=== PATIENT | male | born 1985 | race Caucasian/White ===

== ENCOUNTER 2016-07-24 09:51 | Emergency (ER) | payer OTHER ==
[~2016-07-24] VITALS: Ht 162.6 cm; Wt 63.8 kg
[~2016-07-24 09:51] MED LIST: BACT800T5 PO; DOXY100C PO; MUPI2%T TOPICAL
[2016-07-24 10:03] VITALS: BP 107/75; PULSE 97; RESP 16; TEMP 98.1; O2SAT 99
[2016-07-24] MEDS ORDERED: MORPHINE SULFATE 4 MG/ML INJ IV PUSH ONE (10:30)
[2016-07-24 10:44] LABS: BASOPHIL # 0.1 TH/MM3 (0-0.2); BASOPHIL % 0.6 % (0.0-2.0); EOSINOPHIL % 0.5 % (0.0-4.0); HEMATOCRIT 45.9 % (39.0-51.0); HEMO FLAGS DIFF FINAL; LYMPH % 16.4 % (9.0-44.0); LYMPHOCYTE # 1.6 TH/MM3 (1.0-4.8); MEAN CELL VOLUME 92.9 FL (80.0-100.0); MEAN CORPUSCULAR HEMOGLOBIN 30.1 PG (27.0-34.0); MEAN CORPUSCULAR HGB CONC 32.4 % (32.0-36.0); MONO % 10.2 % (0.0-8.0); NEUT % 72.3 % (16.0-70.0); PLATELET COUNT 215 TH/MM3 (150-450); RED BLOOD COUNT 4.94 MIL/MM3 (4.50-5.90); RED CELL DISTRIBUTION WIDTH 12.4 % (11.6-17.2); WHITE BLOOD COUNT 9.7 TH/MM3 (4.0-11.0)
[2016-07-24 10:54] LABS: CHLORIDE 112 MEQ/L (98-107); POTASSIUM 3.9 MEQ/L (3.5-5.1); SODIUM (NA) 146 MEQ/L (136-145)
[2016-07-24 10:57] LABS: ANION GAP 8 MEQ/L (5-15)
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
[2016-07-24 10:58] LABS: APTT (PATIENT) 28.5 SEC (24.3-30.1); BLOOD UREA NITROGEN 15 MG/DL (7-18); INTERNATIONAL NORMALIZED RATIO 0.9 RATIO; PROTHROMBIN TIME - PATIENT 10.4 SEC (9.8-11.6)
[2016-07-24 11:00] LABS: ALT (GPT) 34 U/L (12-78)
[2016-07-24 11:01] LABS: AST (GOT) 24 U/L (15-37); GLOMERULAR FILTRATION RATE 88 ML/MIN (>89)
[2016-07-24 11:01] LABS: BLOOD, URINE NEG (NEG); GLUCOSE,URINE NEG (NEG); KETONE, URINE NEG (NEG); NITRITE,URINE NEG (NEG)
[2016-07-24 11:02] LABS: TOTAL BILIRUBIN ADULT 0.2 MG/DL (0.2-1.0)
[2016-07-24 11:03] LABS: ALKALINE PHOSPHATASE 80 U/L (45-117)
[2016-07-24 11:08] LABS: METHOD OF COLLECTION CLEAN CATCH; RBC, URINE 0-3 /hpf (0-3); SQUAMOUS EPITHELIAL CELL URINE 0-5 /hpf (0-5); URINE COLOR YELLOW (YELLW/STRAW)
[2016-07-24 11:09] LABS: COMMENT (UR) CULT NOT INDICATED; CULTURE IF INDICATED CULT NOT INDICATED
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
[2016-07-24 11:30] VITALS: BP 110/74; PULSE 80; RESP 18; O2SAT 99
[2016-07-24] MEDS ORDERED: IOHEXOL 300 MG/ML 50 ML BTL (for RAD DIAG) IV ONE (11:51)
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
[2016-07-24] MEDS ORDERED: IBUP-232 PO (13:17)
[2016-07-24] MEDS ORDERED: CYCL1TAB29 PO (13:17)
== END 2016-07-24 13:45 | disposition home or self-care (01) ==
LOC: PHED 09:51
DX: M79.1 Myalgia (principal); R51 Headache; V57.0XXA Driver of pick-up truck or van injured in collision with fixed or stationary object in nontraffic accident, initial encounter; F17.210 Nicotine dependence, cigarettes, uncomplicated
CPT/HCPCS: 70450; 71020; 72125; 74177; 80053; 81001; 85025; 85610; 85730; 86850; 86900; 86901; 96374; 99284; J2270; Q9967

== ENCOUNTER 2016-08-22 00:28 | Emergency (ER) | payer SELFPAY ==
[~2016-08-22] VITALS: Ht 162.6 cm; Wt 66.0 kg
[~2016-08-22 00:28] MED LIST changes: -BACT800T5 PO; +CYCL1TAB29 PO; -DOXY100C PO; +IBUP-232 PO; -MUPI2%T TOPICAL
[2016-08-22 00:37] VITALS: BP 148/105; PULSE 66; RESP 16; TEMP 98.3; O2SAT 99
[2016-08-22] MEDS ORDERED: AMOX500C PO (01:04)
[2016-08-22] MEDS ORDERED: IBUP-232 PO (01:04)
--- NOTE | 2016-08-22 01:05 | PD ---
HPI Chief Complaint: Oral / Dental Pain or Problem Time Seen by Provider: 00:51 Travel History International Travel<30 days: No Contact w/Intl Traveler<30days: No Traveled to known affect area: No History of Present Illness HPI The patient is a 31-year-old male who states he lost a filling a week ago in tooth #32. Tonight this tooth chipped piece off and it became painful. He denies any fever or swelling. He denies any other painful teeth. The patient states he gets hives with Ceclor but he has taken penicillin in the past without problem. PFS Past Medical History Medical History: Denies Significant Hx Asthma: Yes (as a kid) Atrial Fibrillation: No Diminished Hearing: No Immunizations Current: Yes Influenza Vaccination: Yes Past Surgical History Surgical History: No Previous Surgery Social History Alcohol Use: Yes ("RARELY") Tobacco Use: Yes (1/2 PPD) Substance Use: No (HX OF THC) Allergies-Medications (Allergen,Severity, Reaction): Coded Allergies: Ceclor (Verified Allergy, Severe, HIVES, 08/22/16) Reported Meds & Prescriptions Reported Meds & Active Scripts Active No Active Prescriptions or Reported Medications Review of Systems Except as stated in HPI: all other systems reviewed are Neg Physical Exam Narrative GENERAL: Well-nourished, well-developed patient in moderate apparent distress with his dental pain. His vital signs show blood pressure 148/105 but are otherwise normal. SKIN: Warm and dry. HEAD: Normocephalic. EYES: No scleral icterus. No injection or drainage. NECK: Supple, trachea midline. No JVD or lymphadenopathy. CARDIOVASCULAR: Regular rate and rhythm without murmurs, gallops, or rubs. RESPIRATORY: Breath sounds equal bilaterally. No accessory muscle use. GASTROINTESTINAL: Abdomen soft, non-tender, nondistended. MUSCULOSKELETAL: No cyanosis, or edema. BACK: Nontender without obvious deformity. No CVA tenderness. DENTAL: No loose teeth. No malocclusion. There is a questionably chipped tooth on tooth #32 and there is pain around this area. Also tender is the adjacent wisdom tooth area. No drainable abscesses are seen. There is slight erythema of the gums. Data Data Last Documented VS Vital Signs Date Time Temp Pulse Resp B/P Pulse Ox O2 Delivery O2 Flow Rate FiO2 08/22/16 00:37 98.3 66 16 148/105 99 MDM Medical Decision Making Medical Screen Exam Complete: Yes Emergency Medical Condition: Yes Medical Record Reviewed: Yes Differential Diagnosis Dental infection with drainable abscess, dental infection without drainable abscess, chipped tooth, gingivitis Narrative Course The patient likely has a chipped tooth with dental infection. No drainable abscess is noted. Plan: The patient will be put on amoxicillin, 500 Diagnosis Primary Impression: Chipped tooth Additional Impression: Dental infection Additional Instructions: As we discussed, call Tuesday to set up an appointment with a dentist. I gave you to refills on amoxicillin and it is free at [facility]. Take the Motrin one tablet 3 times daily to develop high anti-inflammatory levels in your blood. Med/Other Pt SpecificInfo: Prescription(s) given Scripts Ibuprofen 600 Mg [id number] Mg PO TID #45 TAB Ref 0 Prov:Uri Wen MD 08/22/16 Amoxicillin 500 Mg [id number] Mg PO TID #30 CAP Ref 0 Prov:Uri Wen MD 08/22/16 Disposition: 01 DISCHARGE HOME Condition: Stable Uri Wen MD Aug 22, 2016 01:05
[2016-08-22] MEDS ORDERED: KETOROLAC TROMETHAMINE 60 MG/2 ML (IM) VIAL IM ONE (01:15)
[2016-08-22] MEDS ORDERED: AMOXICILLIN (TRIHYDRATE) 500 MG CAP PO ONE (01:15)
== END 2016-08-22 01:24 | disposition home or self-care (01) ==
LOC: PHED 00:28
DX: K04.7 Periapical abscess without sinus (principal); F17.210 Nicotine dependence, cigarettes, uncomplicated
CPT/HCPCS: 96372; 99282; J1885

== ENCOUNTER 2016-10-24 19:34 | Emergency (ER) | payer SELFPAY ==
[~2016-10-24] VITALS: Ht 162.6 cm; Wt 67.5 kg
[~2016-10-24 19:34] MED LIST changes: +AMOX500C PO; -CYCL1TAB29 PO
[2016-10-24 19:36] VITALS: BP 124/78; PULSE 80; RESP 20; TEMP 98.4; O2SAT 99
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
[2016-10-24] MEDS ORDERED: LIDOCAINE 1%/EPINEPHrine 1:100,000 SOLN 20 ML VIAL INFIL ONE (20:00)
[2016-10-24] MEDS ORDERED: BACT800T5 PO (20:26)
[2016-10-24] MEDS ORDERED: SULFAMETHOXAZOLE-TRIMETHOPRIM DS 800-160 MG TAB PO ONE (20:30)
[2016-10-24] MEDS ORDERED: IBUP800T23 PO (20:31)
== END 2016-10-24 20:33 | disposition home or self-care (01) ==
LOC: PHEFT 19:34
DX: S61.012A Laceration without foreign body of left thumb without damage to nail, initial encounter (principal); W26.0XXA Contact with knife, initial encounter; Y93.89 Activity, other specified; Y92.814 Boat as the place of occurrence of the external cause
CPT/HCPCS: 12001

== ENCOUNTER 2016-12-21 14:44 | Emergency (ER) | payer SELFPAY ==
[~2016-12-21] VITALS: Ht 162.6 cm; Wt 66.0 kg
[~2016-12-21 14:44] MED LIST changes: +BACT800T5 PO; +IBUP800T23 PO
[2016-12-21 14:51] VITALS: BP 119/84; PULSE 108; RESP 22; TEMP 102.7; O2SAT 99
[2016-12-21 14:55] VITALS: BP 119/84; PULSE 108; RESP 18; TEMP 102.7; O2SAT 99
[2016-12-21] MEDS ORDERED: LIDOCAINE VISCOUS 2% SOLN 15 ML UDC PO ONE (15:15)
[2016-12-21] MEDS ORDERED: ALUMINUM/MAGNESIUM/SIMETH 30 ML CUP PO ONE (15:15)
[2016-12-21] MEDS ORDERED: ACETAMINOPHEN 500 MG CPLT PO ONE (15:30)
[2016-12-21] MEDS ORDERED: methylPREDNISolone SOD SUCC 125 MG/2 ML VIAL IM ONE (15:30)
[2016-12-21] MEDS ORDERED: CLINDAMYCIN PHOS 600 MG/4 ML VIAL IM ONE (15:30)
[2016-12-21] MEDS ORDERED: LIDOCAINE HCL 1% PF 30 ML VIAL XX ONE (15:30)
--- NOTE | 2016-12-21 15:41 | PD ---
HPI Chief Complaint: ENT Complaint Time Seen by Provider: 15:06 Travel History International Travel<30 days: No Contact w/Intl Traveler<30days: No Traveled to known affect area: No History of Present Illness HPI This patient complains of fever and sore throat. Duration 3 days. Severity is moderate. He has pain when he swallows. No alleviating factors. No productive cough. PFSH Past Medical History Asthma: Yes (As child ) Atrial Fibrillation: No Diminished Hearing: No Immunizations Current: Yes Tetanus Vaccination: < 5 Years Influenza Vaccination: Yes Past Surgical History Surgical History: No Previous Surgery Social History Alcohol Use: Yes (Occ.) Tobacco Use: Yes (1 PPD) Substance Use: No Allergies-Medications (Allergen,Severity, Reaction): Coded Allergies: Ceclor (Verified Allergy, Severe, HIVES, 12/21/16) Reported Meds & Prescriptions Reported Meds & Active Scripts Active No Active Prescriptions or Reported Medications Review of Systems General / Constitutional: Positive: Fever Eyes: No: Visual changes HENT: Positive: Sore Throat, No: Headaches Cardiovascular: No: Chest Pain or Discomfort Respiratory: No: Shortness of Breath Gastrointestinal: No: Abdominal Pain Genitourinary: No: Dysuria Musculoskeletal: No: Pain Skin: No Rash Neurologic: No: Weakness Psychiatric: No: Depression Endocrine: No: Polydipsia Hematologic/Lymphatic: No: Easy Bruising Physical Exam Narrative GENERAL: Well-nourished, well-developed patient in no apparent distress. SKIN: Focused skin assessment reveals no rash and nodules. Skin is Warm and dry. HEAD: Atraumatic. Normocephalic. EYES: Pupils equal and round. No scleral icterus. No injection or drainage. ENT: No nasal bleeding or discharge. Mucous membranes pink and moist. Uvula midline. Tonsillar areas are erythematous and swollen with some whitish exudate NECK: Trachea midline. No JVD. Some mandibular lymphadenopathy that is tender but not fluctuant CARDIOVASCULAR: Regular rate and rhythm. No murmur appreciated. RESPIRATORY: No accessory muscle use. Clear to auscultation. Breath sounds equal bilaterally. GASTROINTESTINAL: Abdomen soft, non-tender, nondistended. Hepatic and splenic margins not palpable. MUSCULOSKELETAL: No obvious deformities. No clubbing. No cyanosis. No edema. NEUROLOGICAL: Awake and alert. No obvious cranial nerve deficits. Motor grossly within normal limits. Normal speech. PSYCHIATRIC: Appropriate mood and affect; insight and judgment normal. Data Data Last Documented VS Vital Signs Date Time Temp Pulse Resp B/P Pulse Ox O2 Delivery O2 Flow Rate FiO2 12/21/16 14:55 102.7 108 18 119/84 99 Room Air Orders Al-Mag Hy-Si 40-40-4 Mg/Ml Liq (Mag-Al P (12/21/16 15:15) Lidocaine 2% Viscous (Xylocaine 2% Visco (12/21/16 15:15) Acetaminophen (Tylenol) (12/21/16 15:30) Lidocaine Pf 1% Inj (Xylocaine-Mpf 1% In (12/21/16 15:30) Clindamycin Inj (Cleocin Inj) (12/21/16 15:30) Methylprednisolone So Succ Inj (Solumedr (12/21/16 15:30) MDM Medical Decision Making Medical Screen Exam Complete: Yes Emergency Medical Condition: Yes Medical Record Reviewed: Yes Differential Diagnosis Tonsillitis, pharyngitis, lymphadenitis Narrative Course I have reviewed the patient's electronic medical record. Presentation is most consistent with an acute tonsillitis I don't see evidence of or have suspicion of a peritonsillar abscess. 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 The patient was warned about potential sedation for the medications they will receive on prescription. Med/Other Pt SpecificInfo: Prescription(s) given Scripts No Active Prescriptions or Reported Meds Disposition: 01 DISCHARGE HOME Condition: Stable Baudilio Mcneil MD Dec 21, 2016 15:41
[2016-12-21 16:22] VITALS: TEMP 100.2
== END 2016-12-21 16:23 | disposition home or self-care (01) ==
LOC: PHED 14:44
DX: J03.90 Acute tonsillitis, unspecified (principal); F17.210 Nicotine dependence, cigarettes, uncomplicated
CPT/HCPCS: 96372; 99284; J2930

== ENCOUNTER 2017-04-24 14:48 | Emergency (ER) | payer SELFPAY ==
[~2017-04-24] VITALS: Ht 162.6 cm; Wt 63.1 kg
[2017-04-24 14:53] VITALS: BP 147/77; PULSE 92; RESP 18; TEMP 99.8; O2SAT 97
--- NOTE | 2017-04-24 15:21 | PD ---
HPI Chief Complaint: ENT Complaint Time Seen by Provider: 15:12 Travel History International Travel<30 days: No Contact w/Intl Traveler<30days: No Traveled to known affect area: No History of Present Illness HPI 31-year-old male with a three-day history of vomiting, fever (states up to 105 degrees) and sore throat. Says he's been taking DayQuil to relieve some of his fever and chills. Denies cough, chest pain, shortness of breath, abdominal pain , back pain, dysuria, rash or any other complaints. He says he was hunting in [place] the last week and started developing these symptoms for the last 3 days. [facility] Past Medical History Asthma: Yes (As child ) Atrial Fibrillation: No Diminished Hearing: No Immunizations Current: Yes ?: Not Social History Alcohol Use: Yes (Occ.) Tobacco Use: Yes (1 PPD) Substance Use: No Allergies-Medications (Allergen,Severity, Reaction): Coded Allergies: cefaclor (Unverified Allergy, Severe, HIVES, 04/24/17) Reported Meds & Prescriptions Reported Meds & Active Scripts Active Zofran (Ondansetron HCl) 4 Mg Tab 4 Mg PO Q8HR PRN 5 Days Review of Systems Except as stated in HPI: all other systems reviewed are Neg Physical Exam Narrative GENERAL: Well-developed well-nourished SKIN: Focused skin assessment warm/dry. HEAD: Atraumatic. Normocephalic. EYES: Pupils equal and round. No scleral icterus. No injection or drainage. ENT: No nasal bleeding, scant clear discharge. Mucous membranes pink and moist. THROAT: No pharyngeal injection, exudates, or tonsillar hypertrophy. Airway is patent. NECK: Trachea midline. No JVD. CARDIOVASCULAR: Regular rate and rhythm. No murmur appreciated. RESPIRATORY: No accessory muscle use. Clear to auscultation. Breath sounds equal bilaterally. GASTROINTESTINAL: Abdomen soft, non-tender, nondistended. Hepatic and splenic margins not palpable. MUSCULOSKELETAL: No obvious deformities. No clubbing. No cyanosis. No edema. NEUROLOGICAL: Awake and alert. No obvious cranial nerve deficits. Motor grossly within normal limits. Normal speech. PSYCHIATRIC: Appropriate mood and affect; insight and judgment normal. Data Data Last Documented VS Vital Signs Date Time Temp Pulse Resp B/P (MAP) Pulse Ox O2 Delivery O2 Flow Rate FiO2 04/24/17 14:53 99.8 92 18 147/77 (100) 97 Orders Orders Influenzae A/B Antigen (04/24/17 15:21) MDM Medical Decision Making Medical Screen Exam Complete: Yes Emergency Medical Condition: Yes Differential Diagnosis Influenza versus viral syndrome versus pneumonia Narrative Course Patient claims he has had fevers as high as 105. However today he is afebrile. He has been using fxrr-duy-[id number] medication with Tylenol which he says has reduced his fevers. Patient does not look toxic, and has been working this week. Influenza negative Suspected viral syndrome Zofran given for nausea. Advised patient to increase fluid intake and follow up with his primary care physician Advised patient to return to emergency department if condition persists or worsens Diagnosis Primary Impression: Viral syndrome Referrals: [facility] Additional Instructions: Injury or drinking plenty of fluid. Continue Tylenol per package instructions for control of her fever. If he developed increased fever, chills, chest pain, redness of breath, return to the emergency department for further treatment Scripts Ondansetron (Zofran) 4 Mg Tab 4 MG PO Q8HR Y for NAUSEA OR VOMITING for 5 Days, TAB 0 Refills Prov: Jayce Marino MD 04/24/17 Disposition: 01 DISCHARGE HOME Condition: Stable Sofie Bain Apr 24, 2017 15:21
[2017-04-24] MEDS ORDERED: ZOFR4TAB PO (15:23)
== END 2017-04-24 16:03 | disposition home or self-care (01) ==
LOC: PHEFT 14:48
DX: B34.9 Viral infection, unspecified (principal); R50.9 Fever, unspecified; R11.2 Nausea with vomiting, unspecified; R07.0 Pain in throat; F17.200 Nicotine dependence, unspecified, uncomplicated; Z87.09 Personal history of other diseases of the respiratory system
CPT/HCPCS: 87804; 99283

== ENCOUNTER 2017-09-28 18:35 | Emergency (ER) | payer SELFPAY ==
[~2017-09-28] VITALS: Ht 171.4 cm; Wt 63.3 kg
[~2017-09-28 18:35] MED LIST changes: -AMOX500C PO; -BACT800T5 PO; -IBUP-232 PO; -IBUP800T23 PO; +ZOFR4TAB PO
[2017-09-28 18:48] VITALS: BP 174/93; PULSE 58; RESP 16; TEMP 98.1; O2SAT 100
[2017-09-28] MEDS ORDERED: MAGICADU2 SWISH-SWAL (19:43)
[2017-09-28] MEDS ORDERED: IBUP1TAB7 PO (19:43)
[2017-09-28] MEDS ORDERED: CLIN150C14 PO (19:43)
[2017-09-28] MEDS ORDERED: CLINDAMYCIN 150 MG CAP PO SCH (19:45)
[2017-09-28] MEDS ORDERED: ACETAMINOPHEN/HYDROcodone 325 MG/5 MG TAB PO ONE (19:45)
--- NOTE | 2017-09-28 19:45 | PD ---
HPI Chief Complaint: Oral / Dental Pain or Problem Time Seen by Provider: 19:16 Travel History International Travel<30 days: No Contact w/Intl Traveler<30days: No Traveled to known affect area: No History of Present Illness HPI 32 YO M presents to the ED for evaluation of 3 day history of worsening dental pain. Patient endorses dental caries of tooth 7. He states that it's been asymptomatic for about a month. He states that 26 with an implant that it is also very tender. He denies fevers, chills, nausea, vomiting. No treatment attempted at home. PFSH Past Medical History Asthma: Yes (As child ) Atrial Fibrillation: No Diminished Hearing: No Immunizations Current: Yes Tetanus Vaccination: < 5 Years Influenza Vaccination: Yes Past Surgical History Surgical History: No Previous Surgery Social History Alcohol Use: Yes (Occ.) Tobacco Use: Yes (1 PPD) Substance Use: No Allergies-Medications (Allergen,Severity, Reaction): Coded Allergies: cefaclor (Unverified Allergy, Severe, HIVES, 09/28/17) Reported Meds & Prescriptions Reported Meds & Active Scripts Active Magic Mouthwash Adult Liq (Multi-Ingredient Mouthwash/Gargle) 120 Ml Susp 5 Ml SWISH-SWAL ACHS Each 5mL contains: Nystatin 200,000units, Diphenhydramine 4.25mg, Viscous Lidocaine 10mg, Herzog syrup 0.8 mL Ibuprofen 800 Mg Tab 800 Mg PO Q8H PRN Clindamycin (Clindamycin HCl) 150 Mg Cap 450 Mg PO Q6H 7 Days Review of Systems Except as stated in HPI: all other systems reviewed are Neg Physical Exam Narrative GENERAL: Well-nourished, well-developed white male in no acute distress. SKIN: Focused skin assessment warm/dry. HEAD: Normocephalic. EYES: No scleral icterus. No injection or drainage. NECK: Supple, trachea midline. No JVD or lymphadenopathy.\ ENT: Pearly tejeda tympanic and 90 bilaterally. Oropharynx without erythema, edema, exudate. Uvula midline. Airway patent. DENTAL: No loose or chipped teeth. No malocclusion. Large dental caries to the gumline and tooth #6. Surrounding gingiva is erythematous and tender. No calcaneal abscess noted. CARDIOVASCULAR: Regular rate and rhythm without murmurs, gallops, or rubs. RESPIRATORY: Breath sounds equal bilaterally. No accessory muscle use. GASTROINTESTINAL: Abdomen soft, non-tender, nondistended. MUSCULOSKELETAL: No cyanosis, or edema. BACK: Nontender without obvious deformity. No CVA tenderness. Data Data Last Documented VS Vital Signs Date Time Temp Pulse Resp B/P (MAP) Pulse Ox O2 Delivery O2 Flow Rate FiO2 09/28/17 18:48 98.1 58 16 174/93 (120) 100 Orders Orders Clindamycin (Cleocin) (09/28/17 19:45) Acetamin-Hydrocod 325-5 Mg ([place] 5-325 (09/28/17 19:45) MDM Medical Decision Making Medical Screen Exam Complete: Yes Emergency Medical Condition: Yes Differential Diagnosis Dental abscess versus dental caries versus dental infection versus other Narrative Course 32-year-old male presents to the ED for evaluation of 3 day history of worsening dental pain. On exam there is a dental caries of tooth #6 and tender erythema of the surrounding gingiva. No drainable abscess noted. Exam otherwise unremarkable. Patient was prescribed clindamycin 450mg 3 times a day 7 days, intermittent milligram ibuprofen 3 times a day when necessary and Magic mouthwash. He is instructed take the medication as prescribed. Follow with a dentist. He is stable and discharged home. Diagnosis Primary Impression: Dental infection Referrals: Dentist Patient Instructions: Dental Caries (ED), General Instructions Additional Instructions: Take all antibiotics until every pill is gone. Magic mouthwash a few times a day with alternating for water rinses to help with pain. 800 mg ibuprofen up to 3 times a day. Follow-up with the dentist. Return to the ED for any urgent or emergent medical condition. Med/Other Pt SpecificInfo: Prescription(s) given Scripts Ifkfdhov-Qptgpqwomkjsghz-Jadpnjdqg Liq (Magic Mouthwash Adult Liq) 120 Ml Susp 5 ML SWISH-SWAL ACHS for Mouth sores, #120 ML 0 Refills Each 5mL contains: Nystatin 200,000units, Diphenhydramine 4.25mg, Viscous Lidocaine 10mg, Herzog syrup 0.8 mL Prov: Abhishek Sevilla MD 09/28/17 Ibuprofen (Ibuprofen) 800 Mg Tab 800 MG PO Q8H Y for Pain/Inflammation, #15 TAB 0 Refills Prov: Abhishek Sevilla MD 09/28/17 Clindamycin (Clindamycin) 150 Mg Cap 450 MG PO Q6H for Infection for 7 Days, #84 CAP 0 Refills Prov: Abhishek Sevilla MD 09/28/17 Disposition: 01 DISCHARGE HOME Condition: Stable Roxana Bassett Sep 28, 2017 19:45
== END 2017-09-28 20:17 | disposition home or self-care (01) ==
LOC: PHEFT 18:35
DX: K04.7 Periapical abscess without sinus (principal); K02.9 Dental caries, unspecified; F17.200 Nicotine dependence, unspecified, uncomplicated
CPT/HCPCS: 99283

== ENCOUNTER 2017-09-30 05:35 | Emergency (ER) | payer SELFPAY ==
[~2017-09-30] VITALS: Ht 170.2 cm; Wt 63.8 kg
[~2017-09-30 05:35] MED LIST changes: +CLIN150C14 PO; +IBUP1TAB7 PO; +MAGICADU2 SWISH-SWAL; -ZOFR4TAB PO
[2017-09-30 05:46] VITALS: BP 166/66; PULSE 63; RESP 18; TEMP 98.3; O2SAT 100
[2017-09-30] MEDS ORDERED: KETOROLAC TROMETHAMINE 30 MG/ML (IVP) VIAL IV PUSH ONE (07:15)
--- NOTE | 2017-09-30 07:21 | PD ---
HPI Chief Complaint: Oral / Dental Pain or Problem Time Seen by Provider: 07:07 Travel History International Travel<30 days: No Contact w/Intl Traveler<30days: No Traveled to known affect area: No History of Present Illness HPI 32-year-old male states he's having right facial swelling and continued right upper dental pain since he was here recently despite antibiotics and medications given. He states he has not had a chance to set up the dentist or anyone to follow with for this yet. He denies any fever, vomiting or other concurrent complaints. Quality pain is sharp. Severity is severe per patient. He denies specific modifying factors or migration the pain. PFSH Past Medical History Asthma: Yes (As child ) Atrial Fibrillation: No Diminished Hearing: No Immunizations Current: Yes Tetanus Vaccination: < 5 Years Influenza Vaccination: Yes Past Surgical History Surgical History: No Previous Surgery Social History Alcohol Use: Yes (Occ.) Tobacco Use: Yes (1 PPD) Substance Use: No Allergies-Medications (Allergen,Severity, Reaction): Coded Allergies: cefaclor (Unverified Allergy, Severe, HIVES, 09/28/17) Reported Meds & Prescriptions Reported Meds & Active Scripts Active Magic Mouthwash Adult Liq (Multi-Ingredient Mouthwash/Gargle) 120 Ml Susp 5 Ml SWISH-SWAL ACHS Each 5mL contains: Nystatin 200,000units, Diphenhydramine 4.25mg, Viscous Lidocaine 10mg, Herzog syrup 0.8 mL Ibuprofen 800 Mg Tab 800 Mg PO Q8H PRN Clindamycin (Clindamycin HCl) 150 Mg Cap 450 Mg PO Q6H 7 Days Review of Systems Except as stated in HPI: all other systems reviewed are Neg Physical Exam Narrative GENERAL: 32-year-old male in no apparent distress SKIN: Focused skin assessment warm/dry. HEAD: Atraumatic. Normocephalic. EYES: Pupils equal and round. No scleral icterus. No injection or drainage. ENT: No nasal bleeding or discharge. Mucous membranes pink and moist. Patient with decaying tooth and dental caries noted to right mid upper tooth with mild right upper facial swelling without overlying cellulitis, there is also an area periapically above this right incisor that does not have any induration, uvula midline NECK: Trachea midline. No JVD. CARDIOVASCULAR: Regular rate and rhythm. RESPIRATORY: No accessory muscle use. Clear to auscultation. Breath sounds equal bilaterally. GASTROINTESTINAL: Abdomen soft, non-tender, nondistended. MUSCULOSKELETAL: No obvious deformities. No clubbing. No cyanosis. No edema. NEUROLOGICAL: Awake and alert. No obvious cranial nerve deficits. Motor grossly within normal limits. Normal speech. PSYCHIATRIC: Appropriate mood and affect; insight and judgment normal. Data Data Last Documented VS Vital Signs Date Time Temp Pulse Resp B/P (MAP) Pulse Ox O2 Delivery O2 Flow Rate FiO2 09/30/17 09:30 09/30/17 09:20 81 16 98 Room Air 09/30/17 05:[address] Facial Bones W Iv Contrast (09/30/17 ) Complete Blood Count With Diff (09/30/17 07:08) Basic Metabolic Panel (Bmp) (09/30/17 07:08) Iv Access Insert/Monitor (09/30/17 07:08) Ecg Monitoring (09/30/17 07:08) Oximetry (09/30/17 07:08) Ketorolac Inj (Toradol Inj) (09/30/17 07:15) Iohexol 350 Inj (Omnipaque 350 Inj) (09/30/17 08:28) Ed Discharge Order (09/30/17 09:07) Labs Laboratory Tests Test 09/30/17 07:25 White Blood Count 13.1 TH/MM3 Red Blood Count 4.23 MIL/MM3 Hemoglobin 13.1 GM/DL Hematocrit 39.8 % Mean Corpuscular Volume 93.9 FL Mean Corpuscular Hemoglobin 31.0 PG Mean Corpuscular Hemoglobin Concent 33.1 % Red Cell Distribution Width 12.9 % Platelet Count 181 TH/MM3 Mean Platelet Volume 9.3 FL Neutrophils (%) (Auto) 77.3 % Lymphocytes (%) (Auto) 11.5 % Monocytes (%) (Auto) 10.2 % Eosinophils (%) (Auto) 0.4 % Basophils (%) (Auto) 0.6 % Neutrophils # (Auto) 10.1 TH/MM3 Lymphocytes # (Auto) 1.5 TH/MM3 Monocytes # (Auto) 1.3 TH/MM3 Eosinophils # (Auto) 0.1 TH/MM3 Basophils # (Auto) 0.1 TH/MM3 CBC Comment DIFF FINAL Differential Comment Blood Urea Nitrogen 18 MG/DL Creatinine 1.00 MG/DL Random Glucose 101 MG/DL Calcium Level 8.9 MG/DL Sodium Level 141 MEQ/L Potassium Level 4.3 MEQ/L Chloride Level 111 MEQ/L Carbon Dioxide Level 24.3 MEQ/L Anion Gap 6 MEQ/L Estimat Glomerular Filtration Rate 88 ML/MIN MDM Medical Decision Making Medical Screen Exam Complete: Yes Emergency Medical Condition: Yes Medical Record Reviewed: Yes (past history confirm, recent ER visit with clindamycin noted) Interpretation(s) CBC & BMP Diagram 09/30/17 07:25 Calcium Level 8.9 Last [address] 09/30/17 0000 Signed Impressions: Service Date/Time: Saturday, September 30, 2017 08:21 - CONCLUSION: 1. Periapical/radicular cyst involving the right upper incisor. 2. Mucous retention cyst within left maxillary and sphenoid sinuses. 3. Mild mucosal thickening involving the maxillary sinuses. 4. Nasal septal deviation to the left. Abhishek Ramirez MD Differential Diagnosis Dental caries, fractured tooth, abscess, osteomyelitis Narrative Course Given repeat visit and now facial swelling Will check blood work and CT face and reevaluate CT shows cyst over area periapical finding that was on exam. Patient agrees to no drainage here in the ER and will follow urgently with a dentist for further care. Patient denies any new complaints and states that they are feeling better. Patient happy with care, all questions answered. Patient knows that follow up is incumbent on them and to return to the emergency room immediately if new or worsening symptoms develop. Patient given strict return precautions, vitals reviewed and are normal, agrees to further workup as an outpatient. Diagnosis Primary Impression: Dental infection Additional Instructions: continue antibiotic, return as needed, tylenol as needed for pain, set up a dentist TODAY for followup Med/Other Pt SpecificInfo: No Change to Meds Disposition: 01 DISCHARGE HOME Condition: Stable Elvira Shepherd MD Sep 30, 2017 07:21
[2017-09-30 07:31] LABS: AUTOMATED NEUTROPHIL # 10.1 TH/MM3 (1.8-7.7); BASOPHIL # 0.1 TH/MM3 (0-0.2); BASOPHIL % 0.6 % (0.0-2.0); EOSINOPHIL # 0.1 TH/MM3 (0-0.4); EOSINOPHIL % 0.4 % (0.0-4.0); HEMATOCRIT 39.8 % (39.0-51.0); HEMOGLOBIN 13.1 GM/DL (13.0-17.0); LYMPH % 11.5 % (9.0-44.0); LYMPHOCYTE # 1.5 TH/MM3 (1.0-4.8); MEAN CELL VOLUME 93.9 FL (80.0-100.0); MEAN CORPUSCULAR HGB CONC 33.1 % (32.0-36.0); MEAN PLATELET VOLUME 9.3 FL (7.0-11.0); MONO % 10.2 % (0.0-8.0); MONOCYTE # 1.3 TH/MM3 (0-0.9); NEUT % 77.3 % (16.0-70.0); PLATELET COUNT 181 TH/MM3 (150-450); RED BLOOD COUNT 4.23 MIL/MM3 (4.50-5.90); RED CELL DISTRIBUTION WIDTH 12.9 % (11.6-17.2); WHITE BLOOD COUNT 13.1 TH/MM3 (4.0-11.0)
[2017-09-30 07:32] VITALS: RESP 15; O2SAT 99
[2017-09-30 07:35] VITALS: BP 138/83; PULSE 50; RESP 15; O2SAT 99
[2017-09-30 07:43] LABS: BICARBONATE 24.3 MEQ/L (21.0-32.0); CALCIUM 8.9 MG/DL (8.5-10.1)
[2017-09-30] MEDS ORDERED: IOHEXOL 350 MG/ML 10 ML VIAL (for RAD DIAG) IVCONTRAST ONE (08:28)
--- NOTE | 2017-09-30 08:41 | RADRPT ---
EXAM DATE/TIME: 09/30/2017 08:21 [facility] COMPARISON: No previous studies available for comparison. INDICATIONS : Right facial swelling. Right upper dental pain. Evaluate for abscess. IV CONTRAST: 65 cc Omnipaque 350 (iohexol) IV RADIATION DOSE: 29.78 CTDIvol (mGy) MEDICAL HISTORY : Asthma. SURGICAL HISTORY : None. ENCOUNTER: Initial ACUITY: 4 - 6 days PAIN SCALE: 8/10 LOCATION: Right facial TECHNIQUE: Volumetric scanning of the facial bones was performed. Using automated exposure control and adjustme nt of the mA and/or kV according to patient size, radiation dose was kept as low as reasonably achiev able to obtain optimal diagnostic quality images. DICOM format image data is available electronicall y for review and comparison. FINDINGS: ORBITS: The orbital and infraorbital osseous structures are intact. The retroconal structures have a normal configuration. No radiopaque foreign bodies are seen. NASAL BONE: The nasal bone and maxillary spine are intact ZYGOMATIC ARCHES: Symmetric without evidence of fracture. SINUSES: Mucous retention cyst is noted within the left maxillary sinus mild mucosal thickening is noted withi n the maxillary sinuses bilaterally. The ethmoid and frontal sinuses are intact. There is a tiny mucu s retention cyst within left sphenoid sinus. No air-fluid levels seen. NASAL CAVITY: There is mild nasal septal deviation to the left. The lacrimal ducts are intact. SOFT TISSUES: No radiopaque foreign bodies seen. No soft-tissue swelling is seen. INTRACRANIAL: No intracranial air seen. CRIBIFORM PLATE: Grossly intact. DENTAL: There is a lucency surrounding the root of the right incisor consistent with periapical/radicular cys t. CONCLUSION: 1. Periapical/radicular cyst involving the right upper incisor. 2. Mucous retention cyst within left maxillary and sphenoid sinuses. 3. Mild mucosal thickening involving the maxillary sinuses. 4. Nasal septal deviation to the left. Abhishek Ramirez MD on September 30, 2017 at 8:32 Board Certified Radiologist. This report was verified electronically.
[2017-09-30 09:20] VITALS: BP 146/78; PULSE 81; RESP 16; O2SAT 98
== END 2017-09-30 09:31 | disposition home or self-care (01) ==
LOC: PHED 05:35
DX: K04.7 Periapical abscess without sinus (principal); K04.8 Radicular cyst; F17.200 Nicotine dependence, unspecified, uncomplicated
CPT/HCPCS: 70487; 80048; 85025; 96374; 99285; J1885; Q9967

== ENCOUNTER 2018-03-01 23:07 | Inpatient (IN) ==
[2018-03-02] MEDS ORDERED: Sod Chloride 0.9% Inj 1,000 ML IV.SIG ONE (01:59)
[2018-03-02] MEDS ORDERED: Morphine Inj 4 MG/ML Vial IV.PUSH ONE ×2 (01:59→02:50)
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
[2018-03-02 02:29] LABS: Baso # (Auto) 0.1 th/mm3 (0.0-0.2); Baso % (Auto) 0.5 % (0.0-2.0); Eos % (Auto) 0.3 % (0.0-4.0); Hematocrit 40.2 % (39.0-51.0); Hemoglobin 13.5 gm/dL (13.0-17.0); Lymph # (Auto) 1.8 th/mm3 (1.0-4.8); Lymph % (Auto) 12.5 % (9.0-44.0); Mean Corpuscular HGB Conc 33.5 % (32.0-36.0); Mean Corpuscular Volume 95.3 fL (80.0-100.0); Mean Platelet Volume 8.9 fL (7.0-11.0); Mono # (Auto) 1.3 th/mm3 (0.0-0.9); Mono % (Auto) 8.9 % (0.0-8.0); Neut # (Auto) 11.3 th/mm3 (1.8-7.7); Neut % (Auto) 77.8 % (16.0-70.0); Platelet Count 194 th/mm3 (150-450); Red Blood Count 4.22 mil/mm3 (4.50-5.90); Red Cell Distribution Width 12.4 % (11.6-17.2); White Blood Count 14.5 th/mm3 (4.0-11.0)
[2018-03-02 02:42] LABS: Activated Partial Thrombo Time 29.2 sec (24.3-30.1)
[2018-03-02 02:51] LABS: Anion Gap 7 meq/L (5-15); Blood Urea Nitrogen 11 mg/dL (7-18); Calcium 8.8 mg/dL (8.5-10.1); Carbon Dioxide 25.6 meq/L (21.0-32.0); Chloride 109 meq/L (98-107); Glomerular Filtration Rate Greater Than 89 mL/min (>89); Glucose,Random 89 mg/dL (74-106); Potassium 4.1 meq/L (3.5-5.1); Sodium 142 meq/L (136-145)
[2018-03-02 02:53] LABS: Alcohol 76 mg/dL (0-5)
[2018-03-02] MEDS ORDERED: Temazepam 15 MG Capsule PO PRN (03:39)
[2018-03-02] MEDS ORDERED: Morphine Inj 4 MG/ML Vial IV.PUSH PRN ×2 (03:41→08:11)
[2018-03-02] MEDS ORDERED: Sod Chloride 0.9% Inj 1,000 ML IV.CONT SCH (03:45)
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
[2018-03-02] MEDS ORDERED: fentaNYL Citrate Inj 250 MCG/5 ML Ampul ONE ×2 (07:13→08:34)
[2018-03-02] MEDS ORDERED: Chlorhexidine Gluconate 2% 1 Pack (2 Cloths) TOPICAL SCH (07:30)
[2018-03-02] MEDS ORDERED: Metoprolol Tartrate 25 MG Tablet PO SCH (07:30)
[2018-03-02] MEDS ORDERED: Sodium Chlor 0.9% Inj 500 ML IV.SIG SCH (08:00)
--- NOTE | 2018-03-02 08:19 | P.OP ---
- Preoperative Diagnosis (1) Ankle fracture, left Date of procedure: 03/02/18 Procedure: Open reduction internal fixation left distal fibula and syndesmosis Anesthesia: GETMary Kay Surgeon: Lauri Tiwari MD Medical Intern: Rashad Rosado PA-C The surgical procedure was assisted by my physician events administrative assistant. My P.A. presence was necessary throughout this case for the manipulation and positioning of the surgical extremity. My P.A. was assisting me throughout the duration of this procedure. The skill set of a physician events administrative assistant was medically necessary to complete this procedure. During the surgical case the operating room surgical technologist was working at the back table and the physician events administrative assistant was directly assisting me. Operation and Findings: Implants used: ITS Plan of activity: Nonweightbearing Details of procedure: Patient was seen and evaluated preoperatively and found to have a displaced left ankle fracture with widening of the syndesmosis. Informed consent was obtained after a detailed discussion of risk and benefits of surgery. The operative site was marked. Patient was brought to the OR, placed on the OR table, and given IV sedation and general endotracheal anesthesia. IV antibiotics were given preoperatively. A timeout procedure was performed. The left leg was prepped with alcohol followed by Hibiclens and draped in the usual sterile fashion. Attention was turned towards the distal fibula. A four-inch incision was made over the distal fibula. The subcutaneous tissue was dissected with Bovie. The fracture site was visualized. The fracture site was cleaned with curets. The fracture was now reduced. The fracture keyed into anatomic alignment. K-wires were used to hold provisional fixation. A plate was selected and contoured to fit the fibula. The plate was provisionally held to bone with K-wires. 3.5 cortical screws were used to compress the plate to bone. Multiple cortical screws were placed above and below the fracture. Next, attention was turned to the syndesmosis. The syndesmosis was stressed. There was clear widening of the syndesmosis with external rotation of the ankle. The syndesmosis was now held in a reduced position with the ankle in neutral position. Two cortical screws were now placed through the fibula plate into the tibia. Fluoroscopy confirmed appropriate screw placement with well- aligned syndesmosis. Incisions were thoroughly irrigated. The subcutaneous tissue was closed with 3-0 PDS and the skin was closed with 3-0 nylon. Sterile dressings were applied. The patient was transferred to Recovery in stable condition.
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
--- NOTE | 2018-03-02 08:40 | P.PNOP ---
Subjective Interval history: POD 0 s/p ORIF left ankle and syndesmosis stable in pacu Physical Exam Vital signs: Vital Signs 03/01/18 23:17 03/02/18 01:41 03/02/18 02:40 Temperature 98.8 F Pulse Rate 103 H 108 H Respiratory Rate 20 24 16 Blood Pressure 135/86 162/98 H Pulse Oximetry 100 99 03/02/18 03:11 03/02/18 04:13 03/02/18 05:07 Temperature Pulse Rate 87 70 71 Respiratory Rate 16 16 16 Blood Pressure 141/73 H 133/84 Pulse Oximetry 99 98 98 03/02/18 05:29 03/02/18 06:51 Temperature Pulse Rate Respiratory Rate 16 16 Blood Pressure Pulse Oximetry Intake & Output 03/01/18 03/02/18 03/02/18 18:59 06:59 18:59 Intake Total 1400 / 1400 Output Total 20 / 20 Balance 1380 / 1380 Weight 63.503 kg Intake: IV 700 / 700 LR 1000 mL Inj 1,000 ML @ 30 700 / 700 mls/hr IV.SIG .Q24H [facility] Rx#: [id number] Anesthesia Amount 700 / 700 Output: Estimated Blood Loss Narrative: LLE: dressings clean and dry. intact. +splint. NVI Results - Labs CBC & Chem 7: 03/02/18 02:20 03/02/18 02:20 Laboratory Results - last 24 hr 03/02/18 03/02/18 03/02/18 02:20 02:20 02:20 WBC 14.5 H RBC 4.22 L Hgb 13.5 Hct 40.2 MCV 95.3 MCH 32.0 MCHC 33.5 RDW 12.4 Plt Count 194 MPV 8.9 Neut % (Auto) 77.8 H Lymph % (Auto) 12.5 [place] % (Auto) 8.9 H Eos % (Auto) 0.3 Baso % (Auto) 0.5 Neut # (Auto) 11.3 H Lymph # (Auto) 1.8 [place] # (Auto) 1.3 H Eos # (Auto) 0.0 Baso # (Auto) 0.1 WBC Differential . Differential Comment Auto diff final PT 10.0 INR 1.0 APTT 29.2 Sodium 142 Potassium 4.1 Chloride 109 H Carbon Dioxide 25.6 Anion Gap 7 BUN 11 Creatinine 0.98 Estimated GFR Greater than 89 Random Glucose 89 Calcium 8.8 Serum Alcohol 76 H Blood Type Blood Type Recheck Antibody Screen 03/02/18 02:20 WBC RBC Hgb Hct MCV MCH MCHC RDW Plt Count MPV Neut % (Auto) Lymph % (Auto) [place] % (Auto) Eos % (Auto) Baso % (Auto) Neut # (Auto) Lymph # (Auto) [place] # (Auto) Eos # (Auto) Baso # (Auto) WBC Differential Differential Comment PT INR APTT Sodium Potassium Chloride Carbon Dioxide Anion Gap BUN Creatinine Estimated GFR Random Glucose Calcium Serum Alcohol Blood Type O Positive Blood Type Recheck Not needed Antibody Screen Negative - Imaging Impressions Ankle X-Ray 03/02/18 00:00 CONCLUSION: 1. Left ankle ORIF, as above. Ankle X-Ray 03/02/18 01:59 CONCLUSION: Distal fibular fracture with lateral subluxation of the talus in relationship to the tibia consistent with a medial ligamentous injury. Foot X-Ray 03/02/18 01:59 CONCLUSION: Ankle injury best seen on the ankle series. The foot itself appears intact. Assessment and Plan - Problem List (1) Ankle fracture, left Code(s): S82.892A - Other fracture of left lower leg, initial encounter for closed fracture Status: Acute Qualifiers: Encounter type: initial encounter Fracture type: closed Qualified Code(s) : S82.892A - Other fracture of left lower leg, initial encounter for closed fracture - Assessment and Plan 1) left distal fibula fracture with syndesmosis rupture s/p ORIF - POD 0 -NWB -maintain splint at all times -elevate -keep clean and dry -Orth O cleared for discharge home -f/u with Luis M or KRISSY in 2 weeks [facility] [place] Prescription Drug Monitoring Database has been queried and verified prior to prescribing the controlled substance. Acute pain exception. This patient has normal, predicted, physiological, and time limited response to an adverse mechanical stimulus associated with surgery, trauma, or acute illness as described in my notes. There is a lack of alternative treatment options other than to include the prescribed narcotic treatment for this condition.
[2018-03-02 09:53] VITALS: RESP 18
[2018-03-02 10:50] VITALS: BP 126/69; PULSE 80; TEMP 97.3; O2SAT 99
[2018-03-02] MEDS ORDERED: Glycopyrrolate Inj 1 MG/5 ML Syringe IV.PUSH ONE (12:00)
[2018-03-02] MEDS ORDERED: Neostigmine Inj 5 MG/5 ML Syringe IV.PUSH ONE (12:00)
[2018-03-02] MEDS ORDERED: Lidocaine PF 1% Inj 5 ML Syringe INFILTRATN ONE (12:00)
== END 2018-03-02 06:53 | disposition home or self-care (01) ==
LOC: NEPE 23:07 → NEDA 03-02 03:12
PROVIDERS: ADMIT Family Medicine; ATTEND Family Medicine
PROC: ORIFANK (2018-03-02 07:17)